=== PATIENT | female | born 1950 | race Caucasian/White ===

== ENCOUNTER 2018-07-06 10:27 | Outpatient (CLI) | payer MEDICARE, BC, SELFPAY | END 2018-07-06 10:47 | PROVIDERS: PCP Family Medicine; Visit Provider Orthopaedic Surgery | DX: M65.312 Trigger thumb, left thumb (principal) | CPT/HCPCS: 99213 ==

== ENCOUNTER 2018-07-07 12:16 | Day surgery (SDC) | payer MEDICARE, BC, SELFPAY ==
[2018-07-07 12:26] VITALS: BP 165/67; PULSE 72; RESP 20; TEMP 37.2; O2SAT 95
[2018-07-07] MEDS: Lidocaine 2% Pres-Free 5 ML VIAL (14:11)
--- NOTE | 2018-07-07 14:27 | W.PM.DSUDISC ---
Discharge Plan Disposition Patient Disposition: HOME Condition: Good Discharge Details Reason For Visit: (L) TRIGGER FINGER Attending Provider: Catarino Schultz Primary Care Provider: Kory Btets Home Meds and New Rx's Prescriptions: Continue fluoxetine 40 mg Capsule 1 tab PO DAILY RF: 0 metformin 500 mg Tablet 1,500 mg PO BID RF: 0 potassium chloride 10 mEq Capsule, Extended Release 1 cap PO DAILY RF: 0 chlorpheniramine maleate 4 mg Tablet 4 mg PO DAILY RF: 0 acetaminophen 500 mg Tablet 1,000 mg PO BID RF: 0 losartan-hydrochlorothiazide 100-25 mg Tablet 1 tab PO DAILY RF: 0 simvastatin 20 mg Tablet 20 mg PO QPM RF: 0 ranitidine HCl 150 mg Tablet 150 mg PO DAILY RF: 0 albuterol sulfate [Ventolin HFA] 90 mcg/actuation Hfa Aerosol Inhaler 2 puff Inhalation PRN PRNRF: 0 qxrvgtcz-cao-VZ-lycopen-lutein [Century Adults 50 Plus] 0.4-300-250 mg-mcg-mcg Tablet 1 tab PO DAILY RF: 0 Discharge Instructions Additional Instructions: Bend and straighten L thumb 10 times/hour when awake to prevent swelling. Keep dressings dry for 48 hours. Remove dressings after 48 hours. May then shower or bathe and get incision wet. Leave incision uncovered when it is dry and sealed. Use L thumb as much as discomfort allows. Take tylenol or ibuprofen as needed for pain. Follow up in 's office in 10-14 days for suture removal. Referrals: Catarino Shcultz MD [ [facility] STAFF PHYSICIAN] - (f/u in 10-14 days.) Activity:: Activity as Tolerated Remove Dressings/Wound Care:: 48 hours Shower/Bathe:: 48 hours Diet:: As Tolerated Discharge Orders Discharge Orders: Discharge Order (Routine); Ordered 07/07/18 Ordered By: Catarino Schultz
--- NOTE | 2018-07-07 14:33 | PDOC.DSDIS_ITS ---
Discharge Plan Disposition Patient Disposition: HOME Condition: Good Discharge Details Reason For Visit: (L) TRIGGER FINGER Attending Provider: Catarino Schultz Primary Care Provider: Kory Betts Home Meds and New Rx's Prescriptions: Continue fluoxetine 40 mg Capsule 1 tab PO DAILY RF: 0 metformin 500 mg Tablet 1,500 mg PO BID RF: 0 potassium chloride 10 mEq Capsule, Extended Release 1 cap PO DAILY RF: 0 chlorpheniramine maleate 4 mg Tablet 4 mg PO DAILY RF: 0 acetaminophen 500 mg Tablet 1,000 mg PO BID RF: 0 losartan-hydrochlorothiazide 100-25 mg Tablet 1 tab PO DAILY RF: 0 simvastatin 20 mg Tablet 20 mg PO QPM RF: 0 ranitidine HCl 150 mg Tablet 150 mg PO DAILY RF: 0 albuterol sulfate [Ventolin HFA] 90 mcg/actuation Hfa Aerosol Inhaler 2 puff Inhalation PRN PRNRF: 0 jyxdygjk-vfu-YR-lycopen-lutein [Century Adults 50 Plus] 0.4-300-250 mg-mcg- mcg Tablet 1 tab PO DAILY RF: 0 Discharge Instructions Additional Instructions: Bend and straighten L thumb 10 times/hour when awake to prevent swelling. Keep dressings dry for 48 hours. Remove dressings after 48 hours. May then shower or bathe and get incision wet. Leave incision uncovered when it is dry and sealed. Use L thumb as much as discomfort allows. Take tylenol or ibuprofen as needed for pain. Follow up in 's office in 10-14 days for suture removal. Referrals: Catarino Schultz MD [ [facility] STAFF PHYSICIAN] - (f/u in 10-14 days.) Activity:: Activity as Tolerated Remove Dressings/Wound Care:: 48 hours Shower/Bathe:: 48 hours Diet:: As Tolerated Discharge Orders Discharge Orders: Discharge Order (Routine); Ordered 07/07/18 Ordered By: Catarino Schultz
--- NOTE | 2018-07-07 18:49 | ROE_ITS ---
DATE OF PROCEDURE: July 07, 2018 PREOPERATIVE DIAGNOSIS: Trigger left thumb. POSTOPERATIVE DIAGNOSIS: Trigger left thumb. PROCEDURE: Tendon sheath incision for left trigger thumb release. SURGEON: Catarino Schultz M.D. ANESTHESIA: Local infiltration with 2% Xylocaine solution and 0.5% Marcaine with epinephrine solutio n. INDICATIONS: This is a 68-year-old white female with over a two-month history of painful locking and catching of her left thumb. Her problem has progressed to the point where she could not actively ex tend her left thumb IP joint fully. She has obvious triggering of her thumb with active flexion of h er left thumb. She has previously had an excellent result from a right trigger thumb release. She w ished to have the same procedure on the left side. The risks and complications of the procedure were explained to the patient in detail preoperatively. PROCEDURE: The patient was taken to the Procedure Room on 07/07/18. She was placed supine on the op erating table. Her left hand, wrist, and forearm were prepped and draped free in the usual sterile f ashion. I infiltrated over the proximal flexion crease of the left thumb with 2% Xylocaine solution. I then made a 2.5-cm incision in line with the proximal flexion crease of the left thumb just throu gh the skin to the subcu. Blunt-tipped Littler scissors were then used to mobilize soft tissue and d igital nerves away from the flexor sheath of the thumb. Self-retaining retractors as well as some Ra gnell retractors were inserted. The flexor sheath was clearly visualized. Under direct vision, I in cised the proximal yoselyn of the flexor sheath in the midline. I released the A1 yoselyn completely. I then asked the patient to actively flex and extend her left thumb. She was now able to flex and e xtend her left thumb fully without triggering. The wound was irrigated with saline solution. The wo und margins were infiltrated with 0.5% Marcaine with epinephrine solution and the skin edges were felipe roximated with three interrupted #4-0 nylon sutures. The wound was dressed with Xeroform gauze, ster ile gauze 4x4s, and wrapped with a 2-inch Maurisio bandage. The patient tolerated the procedure well an d was discharged to the Day Surgery Unit in good condition. The patient was discharged home from the Day Surgery Unit with instructions to bend and straighten he r left thumb 10 times an hour while awake to prevent swelling. She may remove her dressings, shower and get her incision wet after 48 hours. She can leave the incision uncovered when it is dry and sea led. She is encouraged to use her left thumb as much as discomfort allows. She will take Tylenol or Advil for pain and will follow up in Dr. Schultz's office in 10 to 14 days.
== END 2018-07-07 14:45 | disposition home or self-care (01) ==
PROVIDERS: PCP Family Medicine; Visit Provider Orthopaedic Surgery
PROC: (CPT 26055; principal; 2018-07-07 14:30)
DX: M65.312 Trigger thumb, left thumb (principal)
CPT/HCPCS: 26055

== ENCOUNTER → 2018-07-20 09:56 | Outpatient (BNVA) | payer MEDICARE, BC, SELFPAY | PROVIDERS: PCP Family Medicine; Referring Provider Family Medicine; Visit Provider Orthopaedic Surgery | DX: Z47.89 Encounter for other orthopedic aftercare (principal); M65.312 Trigger thumb, left thumb ==

== ENCOUNTER → 2025-07-06 09:16 | Outpatient (BNVA) | payer MEDICARE, BC, SELFPAY | PROVIDERS: PCP Family Medicine; Referring Provider Family Medicine; Visit Provider Physician Assistant | DX: M70.62 Trochanteric bursitis, left hip (principal) | CPT/HCPCS: 20610; J1010 ==